=== PATIENT | male | born 1980 | race Hispanic/Latino ===

== ENCOUNTER 2017-02-17 23:54 | Observation (INO) | payer BC ==
[2017-02-17 23:59] VITALS: BP 139/90; PULSE 87; RESP 18; TEMP 98; O2SAT 98
--- NOTE | 2017-02-18 00:21 | ED PDOC ---
HPI: Psych/Substance Abuse Time Seen by Provider: 02/18/17 00:02 Chief Complaint (Nursing): Trauma Chief Complaint (Provider): etoh, fall History Per: Patient, EMS History/Exam Limitations: no limitations Additional History Per: Patient, EMS Additional Complaint(s): 36 y/o male brought in by EMS for eval of acute alcohol intoxication and fall. Patient found laying on sidewalk by bystanders. Patient with abrasions on head , left hand. Patient denies acute medical or psychiatric complaints. Past Medical History Reviewed: Historical Data, Nursing Documentation, Vital Signs Vital Signs: Last Vital Signs Temp 98 F 02/17/17 23:57 Pulse 87 02/17/17 23:57 Resp 18 02/17/17 23:57 BP 139/90 02/17/17 23:57 Pulse Ox 98 02/17/17 23:57 - Medical History PMH: No Chronic Diseases - Surgical History Surgical History: No Surg Hx - Family History Family History: States: Unknown Family Hx - Social History Current smoker - smoking cessation education provided: No Alcohol: None Drugs: Denies - Allergies Allergies/Adverse Reactions: Allergies Allergy/AdvReac Type Severity Reaction Status Date / Time No Known Allergies Allergy Verified 02/18/17 00:01 Review of Systems ROS Statement: Except As Marked, All Systems Reviewed And Found Negative Physical Exam - Reviewed Nursing Documentation Reviewed: Yes Vital Signs Reviewed: Yes - Physical Exam Appears: Positive for: Well, Non-toxic, No Acute Distress Head Exam: Negative for: ATRAUMATIC (skin avulsion right parietal scalp; no surrounding hematoma ) Skin: Positive for: Normal Color Eye Exam: Positive for: Normal appearance, EOMI, PERRL ENT: Positive for: Normal ENT Inspection Cardiovascular/Chest: Positive for: Regular Rate, Rhythm Respiratory: Positive for: Normal Breath Sounds Gastrointestinal/Abdominal: Positive for: Normal Exam Back: Positive for: Normal Inspection Extremity: Positive for: Normal ROM, Other (abrasions to dorsal right hand; no swelling, deformity. FROM) Neurologic/Psych: Positive for: Alert, Oriented (x2), Other (slurred speech, + AOB) - Laboratory Results Result Diagrams: 02/18/17 00:55 02/18/17 00:55 - ECG O2 Sat by Pulse Oximetry: 98 - Progress ED Course And Treament: labs, CT head, accucheck Scalp wound cleaned with NS, bacitracin and bandage applied Hand abrasions cleaned with NS. ED OBSERVATION Date of observation admission: 02/18/17 Time of observation admission: 01:27 - Observation admission statement Patient is being placed in observation because:: acute alcohol intoxication - Goals of Observation Goals of observation are:: observe for clinical sobriety - Progress Note Progress Note: 02/18/17 01:28 Patient sleeping; no distress EXAM: CT Head Without Intravenous Contrast CLINICAL HISTORY: Injury or trauma; Fall; Additional info: ETOH, fall TECHNIQUE: Axial computed tomography images of the head/brain without intravenous contrast. All CT scans at this facility use one or more dose reduction techniques, viz.: automated exposure control; ma/kV adjustment per patient size (including targeted exams where dose is matched to indication; i.e. head); or iterative reconstruction technique. Coronal and sagittal reformatted images were created and reviewed. EXAM DATE/TIME: 02/18/2017 COMPARISON: Per the online merchandising manager, the patient has no prior studies for comparison. FINDINGS: Brain: No acute intracranial hemorrhage. No abnormal extra-axial fluid collection. No herniation. Patent basal cisterns. Preserved zelaya-white matter differentiation. No evidence of acute ischemia. No evident intracranial mass. Ventricles: No hydrocephalus. Bones/joints: No evident acute fracture. Soft tissues: Small right parietal scalp contusion. Sinuses: Minimal mucosal thickening in the paranasal sinuses. Mastoid air cells: The mastoid air cells are clear. Orbits: No evident acute abnormality of the intraorbital contents. IMPRESSION: 1. No acute intracranial findings. 2. Small right parietal scalp contusion. EXAM: CT Cervical Spine Without Intravenous Contrast CLINICAL HISTORY: Injury or trauma; Fall; Initial encounter; Blunt trauma; Additional info: ETOH, fall TECHNIQUE: Axial computed tomography images of the cervical spine without intravenous contrast. All CT scans at this facility use one or more dose reduction techniques, viz.: automated exposure control; ma/kV adjustment per patient size (including targeted exams where dose is matched to indication; i.e. head); or iterative reconstruction technique. Coronal and sagittal reformatted images were created and reviewed. EXAM DATE/TIME: 02/18/2017 COMPARISON: Per the online merchandising manager, the patient has no prior studies for comparison. FINDINGS: Vertebrae: The spine is imaged from the skull base through the top of T3. No acute fracture. Anatomic alignment. Discs/spinal canal/neural foramina: Mild multilevel degenerative changes. Posterior discosteophyte complexes at C4-C5, C5-C6, and C6-C7 with associated mild central canal narrowing. No gross acute abnormality within the spinal canal. Soft tissues: No prevertebral soft tissue swelling or other evident acute abnormality. Lung apices: No pneumothorax, pleural fluid collection, or pulmonary airspace consolidation in the imaged portion of the thorax. IMPRESSION: 1. No acute findings. 2. Non-acute findings as described above. 3:00 Patient sleeping; no distress 4:30 Patient sleeping; no distress 6:00 Patient awake, alert, oriented x3. Ambulating steady gait. Stable for discharge. Advised neosporin for abrasions. Ice affected area. Follow up PMD 2-3 days. Return to ED for worsening/concerning symptoms. Disposition - Clinical Impression Clinical Impression: Alcohol intoxication, Skin avulsion, Head injury - Disposition
[2017-02-18 01:03] LABS: BASO % 0.4 % (0.0-2.0); EOS # 0.2 K/uL (0.0-0.7); HEMOGLOBIN 15.7 g/dL (12.0-18.0); LYMPH # 3.2 K/uL (1.0-4.3); LYMPH % 41.4 % (20.0-40.0); MEAN CELL VOLUME 87.5 fl (80.0-94.0); MEAN CORPUSCULAR HEMOGLOBIN 29.7 pg (27.0-31.0); MEAN PLATELET VOLUME 8.5 fl (7.2-11.7); MONO # 0.4 K/uL (0.0-0.8); MONO % 4.8 % (0.0-10.0); NEUT # 3.9 K/uL (1.8-7.0); NEUT % 50.4 % (50.0-75.0); NRBC % 0.1 % (0.0-0.0); RBC 5.29 Mil/uL (4.40-5.90); RED CELL DISTRIBUTION WIDTH 12.6 % (11.5-14.5); WHITE BLOOD COUNT 7.7 K/uL (4.8-10.8)
[2017-02-18 01:14] LABS: ALB/GLOB RATIO 1.6 (1.0-2.1); ALBUMIN 4.9 g/dL (3.5-5.0); ALT/SGPT 42 U/L (21-72); AST/SGOT 23 U/L (17-59); BLOOD UREA NITROGEN 15 mg/dl (9-20); CALCIUM 9.3 mg/dL (8.4-10.2); GFR AFRICAN-AMERICAN > 60; GFR NON-AFRICAN AMERICAN > 60
--- NOTE | 2017-02-18 09:26 | CT ---
PROCEDURE: CT HEAD WITHOUT CONTRAST. HISTORY: etoh, fall COMPARISON: None available. TECHNIQUE: Axial computed tomography images were obtained through the head/brain without intravenous contrast. Radiation dose: Total exam DLP = 837.91 mGy-cm. This CT exam was performed using one or more of the following dose reduction techniques: Automated exposure control, adjustment of the mA and/or kV according to patient size, and/or use of iterative reconstruction technique. FINDINGS: HEMORRHAGE: No intracranial hemorrhage. BRAIN: No mass effect or edema. No atrophy or chronic microvascular ischemic changes. VENTRICLES: Unremarkable. No hydrocephalus. CALVARIUM: No evidence of acute fracture. Soft tissue swelling seen at the right parietal scalp. PARANASAL SINUSES: Unremarkable as visualized. No significant inflammatory changes. MASTOID AIR CELLS: Unremarkable as visualized. No inflammatory changes. OTHER FINDINGS: None. IMPRESSION: No evidence of acute intracranial hemorrhage intracranial collection mass effect or midline shift. Small soft tissue swelling seen at the right parietal skull. Preliminary report was submitted by [facility].
--- NOTE | 2017-02-18 09:29 | CT ---
PROCEDURE: CT Cervical Spine without contrast HISTORY: <etoh, fall> COMPARISON: None available. TECHNIQUE: Axial computed tomography images were obtained of the cervical spine without the use of intravenous contrast. Coronal and sagittal reformatted images were created and reviewed. Radiation dose: Total exam DLP = 502.29 mGy-cm. This CT exam was performed using one or more of the following dose reduction techniques: Automated exposure control, adjustment of the mA and/or kV according to patient size, and/or use of iterative reconstruction technique. FINDINGS: VERTEBRAE: No fracture. Normal alignment. No destructive bony lesion. DISCS/SPINAL CANAL/NEURAL FORAMINA: Cenw-ot-unwsdigc spondylosis. Osteophyte disc bulging complex seen at C5-C6 associated with mild spinal stenosis. Discs heights are grossly preserved. PARASPINAL SOFT TISSUES: Unremarkable. OTHER FINDINGS: None. IMPRESSION: No CT evidence of acute fracture or subluxation. Lrxa-xm-hymtpkun spondylosis. Osteophyte disc bulging complex at C5-C6 associated with mild spinal stenosis. Preliminary report was submitted by [facility].
== END 2017-02-18 06:17 | disposition home or self-care (01) ==
LOC: H.ER 23:54 → H.EROBSV 02-18 01:27
PROVIDERS: ADMIT Emergency Medicine; ATTEND Emergency Medicine
DX: F10.129 Alcohol abuse with intoxication, unspecified (principal); S00.03XA Contusion of scalp, initial encounter; W19.XXXA Unspecified fall, initial encounter
CPT/HCPCS: 70450; 72125; 80053; 85025; G0378; G0480

== ENCOUNTER 2017-09-26 09:15 | Inpatient (IN) | payer BC ==
[2017-09-26] MEDS ORDERED: Sodium Chloride 0.9% 1,000 ML IV STA ×2 (10:23→14:40)
[2017-09-26] MEDS ORDERED: Morphine 4 MG/ML VIAL ONE ×3 (10:43→17:35)
[2017-09-26 10:50] LABS: VENOUS BLOOD GAS BASE EXCESS -12.2 mmol/L (0.0-2.0); VENOUS BLOOD GAS PCO2 64 mmHg (40-60); VENOUS BLOOD GAS PO2 63 mm/Hg (30-55); VENOUS BLOOD PH 7.08 (7.32-7.43)
[2017-09-26] MEDS: Morphine 4 MG/ML VIAL IVP ONE ×2 (10:51→14:44)
[2017-09-26 10:53] LABS: BASO % 0.1 % (0.0-2.0); EOS # 0.1 K/uL (0.0-0.7); EOS % 0.8 % (0.0-4.0); HEMOGLOBIN 16.1 g/dL (12.0-18.0); LYMPH # 1.1 K/uL (1.0-4.3); LYMPH % 10.9 % (20.0-40.0); MEAN CELL VOLUME 86.4 fl (80.0-94.0); MEAN CORPUSCULAR HEMOGLOBIN 30.3 pg (27.0-31.0); MONO # 0.8 K/uL (0.0-0.8); MONO % 7.8 % (0.0-10.0); NEUT # 7.8 K/uL (1.8-7.0); NEUT % 80.4 % (50.0-75.0); NRBC % 0.1 % (0.0-0.0); RBC 5.33 Mil/uL (4.40-5.90); RED CELL DISTRIBUTION WIDTH 12.7 % (11.5-14.5); WHITE BLOOD COUNT 9.7 K/uL (4.8-10.8)
[2017-09-26 10:58] LABS: INR 1.2 (0.9-1.2); PARTIAL THROMBOPLASTIN TIME 33.1 Seconds (25.6-37.1); PROTHROMBIN TIME 13.4 Seconds (9.8-13.1)
[2017-09-26 11:30] LABS: ALB/GLOB RATIO 1.2 (1.0-2.1); ALBUMIN 4.2 g/dL (3.5-5.0); ALT/SGPT 26 U/L (21-72); AST/SGOT 22 U/L (17-59); BLOOD UREA NITROGEN 17 mg/dl (9-20); CALCIUM 9.4 mg/dL (8.4-10.2); GFR AFRICAN-AMERICAN > 60; GFR NON-AFRICAN AMERICAN > 60
[2017-09-26 11:35] LABS: BLOOD UREA NITROGEN 17 mg/dl (9-20); CALCIUM 9.4 mg/dL (8.4-10.2); GFR AFRICAN-AMERICAN > 60; GFR NON-AFRICAN AMERICAN > 60
[2017-09-26 11:36] LABS: ALB/GLOB RATIO 1.3 (1.0-2.1); ALBUMIN 4.2 g/dL (3.5-5.0); ALT/SGPT 26 U/L (21-72); AST/SGOT 22 U/L (17-59)
[2017-09-26] MEDS ORDERED: Iohexol 300 100 ML IJ ONE (12:34)
[2017-09-26] MEDS ORDERED: Sodium Chloride 0.9% 100 ML ONE (12:34)
--- NOTE | 2017-09-26 13:53 | ED PDOC ---
HPI: Abdomen Time Seen by Provider: 09/26/17 09:45 Chief Complaint (Nursing): Abdominal Pain Chief Complaint (Provider): Right lower quadrant pain History Per: Patient History/Exam Limitations: no limitations Onset/Duration Of Symptoms: Days Location Of Pain/Discomfort: RLQ Quality Of Discomfort: "Pain" Exacerbating Factors: Movement, Cough, Walking Additional History Per: Patient Additional Complaint(s): 37yo male with no past medical history, presents to ED with complaints of right lower quadrant pain, present for the past 4 days. patient states the pain has been constant and is worsening; he states pain worsens with moving, coughing and touching the area. He denies any nausea, fever, vomiting or diarrhea. He has no other medical complaints. PCP: Dr. Mahoney Past Medical History Reviewed: Historical Data, Nursing Documentation, Vital Signs Vital Signs: Last Vital Signs Temp 100.9 F H 09/27/17 21:41 Pulse 95 H 09/27/17 21:00 Resp 20 09/27/17 21:00 BP 114/67 09/27/17 21:00 Pulse Ox 95 09/27/17 21:00 - Medical History PMH: No Chronic Diseases - Surgical History Surgical History: Tonsillectomy - Family History Family History: States: Unknown Family Hx - Home Medications Home Medications: Ambulatory Orders Medication Instructions Recorded No Known Home Med 09/26/17 - Allergies Allergies/Adverse Reactions: Allergies Allergy/AdvReac Type Severity Reaction Status Date / Time No Known Allergies Allergy Verified 02/18/17 00:01 Review of Systems ROS Statement: Except As Marked, All Systems Reviewed And Found Negative Constitutional: Negative for: Fever, Chills Gastrointestinal: Positive for: Abdominal Pain. Negative for: Nausea, Vomiting , Diarrhea Physical Exam - Reviewed Nursing Documentation Reviewed: Yes Vital Signs Reviewed: Yes - Physical Exam Appears: Positive for: Uncomfortable Head Exam: Positive for: ATRAUMATIC Skin: Positive for: Normal Color, Warm, Dry Eye Exam: Positive for: Normal appearance, EOMI, PERRL ENT: Positive for: Normal ENT Inspection Neck: Positive for: Painless ROM, Supple Cardiovascular/Chest: Positive for: Regular Rate, Rhythm. Negative for: Tachycardia Respiratory: Positive for: Normal Breath Sounds. Negative for: Respiratory Distress Gastrointestinal/Abdominal: Positive for: Soft, Tenderness (right lower quadrant ), Rebound. Negative for: Distended, Guarding, Other (peritoneal signs) Extremity: Positive for: Normal ROM Neurologic/Psych: Positive for: Alert, Oriented. Negative for: Motor/Sensory Deficits - Laboratory Results Result Diagrams: 09/27/17 05:50 09/27/17 05:50 - ECG O2 Sat by Pulse Oximetry: 99 (RA) Pulse Ox Interpretation: Normal Medical Decision Making Medical Decision Making: Impression: Right lower quadrant pain Differential: Most likely acute appendicitis, less likely kidney stones, UTI Plan: -- Labs -- IV Fluids -- Morphine 4mg IV -- Zofran 4mg IV -- CT Abdomen and Pelvis w/ IV Contrast Time: 1351 Radiologist informed provider that patient had acute appendicits. Case discussed with Dr. Mahoney, patient's PCP who is requesting Dr. Nelson for surgical consult. CT Abdomen and Pelvis FINDINGS: LOWER THORAX: A 7.7 mm nodular density seen abutting the right hemidiaphragm noncalcified and solid in consistency in image 12 series 3. Lung bases are otherwise clear. LIVER: Unremarkable. No gross lesion or ductal dilatation. GALLBLADDER AND BILE DUCTS: Unremarkable. PANCREAS: Unremarkable. No gross lesion or ductal dilatation. SPLEEN: Unremarkable. ADRENALS: Unremarkable. No mass. KIDNEYS AND URETERS: 1.4 cm simple cyst in the upper pole left kidney with a a 3.7 cm cyst identified at the mid to lower pole right kidney. No obstructive uropathy bilaterally. No radiodense urolithiasis associated with either kidney. VASCULATURE: Unremarkable. No aortic aneurysm. BOWEL: The lack of oral contrast limits evaluation of small large-bowel elements with the stomach collapsed. Moderate fecal loading seen throughout the large bowel with small bowel unremarkable grossly. No obstruction. No gross mural thickening. APPENDIX: Marked mural thickening seen within a distended, fluid-filled appendix measuring proxy 1.5 cm caliber with local jeanna appendiceal reaction. The pattern is most compatible with appendicitis without CT sign of rupture. PERITONEUM: Local periappendiceal reaction with remainder of the perineum unremarkable. No free air or fluid collection related. LYMPH NODES: Unremarkable. No enlarged lymph nodes. BLADDER: Unremarkable. REPRODUCTIVE: Unremarkable. BONES: No acute fracture. OTHER FINDINGS: None. IMPRESSION: 1. Findings positive for appendicitis without CT sign of rupture. 2. Bilateral renal cysts. 3. 7.7 mm noncalcified nodular density appears to abut the right hemidiaphragm likely reflecting a subpleural nodule. This may very difficult area to perform CT-guided biopsy due to the motion of the right hemidiaphragm. Options would be for tissue diagnosis which is the usual recommendation for the size of nodule. PET CT is a consideration though it may not visualize lesions smaller than 1 cm greatest dimension such as this nodule. There remains an option as well as short -term CT follow-up including six-month CT the chest if biopsy is not pursued. Time: 1353 Case discussed with surgical device sales representative dr. Owens, who will evaluated patient in ER. Time: 1355 Patient to be admitted under Dr. Mahoney with Dr. Nelson as consult. Case discussed with Dr. Nelson who agrees for surgical consult. Scribe Attestation: Documented by Angela Walters, acting as a scribe for Rena Wahl MD. Provider Scribe Attestation: All medical record entries made by the Scribe were at my direction and personally dictated by me. I have reviewed the chart and agree that the record accurately reflects my personal performance of the history, physical exam, medical decision making, and the department course for this patient. I have also personally directed, reviewed, and agree with the discharge instructions and disposition. Disposition - Clinical Impression Clinical Impression: Acute appendicitis - Patient ED Disposition Is Patient to be Admitted: Yes Discussed With : Rocael Goodwin Doctor Will See Patient In The: Hospital Counseled Patient/Family Regarding: Studies Performed, Diagnosis - Disposition Disposition Time: 13:55 Condition: FAIR - Pt Status Changed To: Hospital Disposition Of: Observation - POA Present On Arrival: None
--- NOTE | 2017-09-26 13:53 | CT ---
PROCEDURE: CT Abdomen and Pelvis with contrast HISTORY: RLQ pain COMPARISON: None. TECHNIQUE: Following the intravenous administration of iodinated contrast material, a CT examination of the abdomen and pelvis performed from the domes of the diaphragms to the symphysis pubis with reformatted datasets provided not only axial but also sagittal and coronal planes. Oral contrast was not administered as per referring physician request. Contrast dose: Omnipaque 300, 95 cc Radiation dose: Total exam DLP = 432.04 mGy-cm. This CT exam was performed using one or more of the following dose reduction techniques: Automated exposure control, adjustment of the mA and/or kV according to patient size, and/or use of iterative reconstruction technique. FINDINGS: LOWER THORAX: A 7.7 mm nodular density seen abutting the right hemidiaphragm noncalcified and solid in consistency in image 12 series 3. Lung bases are otherwise clear. LIVER: Unremarkable. No gross lesion or ductal dilatation. GALLBLADDER AND BILE DUCTS: Unremarkable. PANCREAS: Unremarkable. No gross lesion or ductal dilatation. SPLEEN: Unremarkable. ADRENALS: Unremarkable. No mass. KIDNEYS AND URETERS: 1.4 cm simple cyst in the upper pole left kidney with a a 3.7 cm cyst identified at the mid to lower pole right kidney. No obstructive uropathy bilaterally. No radiodense urolithiasis associated with either kidney. VASCULATURE: Unremarkable. No aortic aneurysm. BOWEL: The lack of oral contrast limits evaluation of small large-bowel elements with the stomach collapsed. Moderate fecal loading seen throughout the large bowel with small bowel unremarkable grossly. No obstruction. No gross mural thickening. APPENDIX: Marked mural thickening seen within a distended, fluid-filled appendix measuring proxy 1.5 cm caliber with local jeanna appendiceal reaction. The pattern is most compatible with appendicitis without CT sign of rupture. PERITONEUM: Local periappendiceal reaction with remainder of the perineum unremarkable. No free air or fluid collection related. LYMPH NODES: Unremarkable. No enlarged lymph nodes. BLADDER: Unremarkable. REPRODUCTIVE: Unremarkable. BONES: No acute fracture. OTHER FINDINGS: None. IMPRESSION: 1. Findings positive for appendicitis without CT sign of rupture. 2. Bilateral renal cysts. 3. 7.7 mm noncalcified nodular density appears to abut the right hemidiaphragm likely reflecting a subpleural nodule. This may very difficult area to perform CT-guided biopsy due to the motion of the right hemidiaphragm. Options would be for tissue diagnosis which is the usual recommendation for the size of nodule. PET CT is a consideration though it may not visualize lesions smaller than 1 cm greatest dimension such as this nodule. There remains an option as well as short-term CT follow-up including six-month CT the chest if biopsy is not pursued. Findings discussed with Dr. Wahl 09/26/2017 2:47 p.m. read back in written down verification.
--- NOTE | 2017-09-26 13:57 | CP.PCM.CON ---
History of Present Illness - History of Present Illness History of Present Illness: 37M with no significant past medical history presents to [facility] ED with complaints of abdominal pain. Patient reports abdominal pain began on Tuesday states location of pain was along lower abdominal region. As the days went by abdominal pain got worse and localized towards the right lower quadrant. Patient reports chills and nausea. Rates pain as 10/10. Denies headaches, cough , chest pain, shortness of breath. Reports increase in urinary frequency denies dysuria. PMH: as stated above Surgical history: tonsillectomy and adenoidectomy Soc Hx: Denies smoking. Denies illicit drug use. EtOH use socially. Fam Hx: non-contributory Review of Systems - Review of Systems Review of Systems: 12 pt ROS reviewed, unremarkable, except as stated in HPI Past Patient History - Past Social History Smoking Status: Unknown If Ever Smoked - PSYCHIATRIC Hx Substance Use: No - SURGICAL HISTORY Hx Tonsillectomy: Yes - ANESTHESIA Hx Anesthesia: Yes Meds Allergies/Adverse Reactions: Allergies Allergy/AdvReac Type Severity Reaction Status Date / Time No Known Allergies Allergy Verified 02/18/17 00:01 Physical Exam - Constitutional Appears: Non-toxic, No Acute Distress - Head Exam Head Exam: NORMOCEPHALIC - Eye Exam Eye Exam: EOMI, Normal appearance, PERRL - ENT Exam ENT Exam: Mucous Membranes Moist - Respiratory Exam Respiratory Exam: NORMAL BREATHING PATTERN - Cardiovascular Exam Cardiovascular Exam: +S1, +S2 - GI/Abdominal Exam GI & Abdominal Exam: Guarding, Rebound, Tenderness. absent: Distended, Firm, Rigid Additional comments: +rebound tenderness +Rovsing sign +McBurney's + psoas test +RLQ tenderness - Neurological Exam Neurological exam: Alert, Oriented x3 - Psychiatric Exam Psychiatric exam: Normal Mood - Skin Skin Exam: Dry, Intact, Warm Results - Vital Signs Recent Vital Signs: Last Vital Signs Temp 98 F 09/26/17 09:36 Pulse 88 09/26/17 09:36 Resp 18 09/26/17 09:36 BP 135/88 09/26/17 09:36 Pulse Ox 99 09/26/17 13:53 - Labs Result Diagrams: 09/26/17 10:42 09/26/17 11:07 Labs: Laboratory Results - last 24 hr 09/26/17 09/26/17 09/26/17 10:28 10:42 10:42 WBC 9.7 RBC 5.33 Hgb 16.1 Hct 46.1 MCV 86.4 MCH 30.3 MCHC 35.0 RDW 12.7 Plt Count 190 MPV 9.0 Neut % (Auto) 80.4 H Lymph % (Auto) 10.9 L [place] % (Auto) 7.8 Eos % (Auto) 0.8 Baso % (Auto) 0.1 Neut # (Auto) 7.8 H Lymph # (Auto) 1.1 [place] # (Auto) 0.8 Eos # (Auto) 0.1 Baso # (Auto) 0.0 PT INR APTT Sodium 143 Potassium 4.0 Chloride 101 Carbon Dioxide 24 Anion Gap 22 H BUN 17 Creatinine 0.9 Est GFR ( Amer) > 60 Est GFR (Non-Af Amer) > 60 POC Glucose (mg/dL) 94 Random Glucose 92 Calcium 9.4 Total Bilirubin 1.0 AST 22 ALT 26 Alkaline Phosphatase 57 Total Protein 7.5 Albumin 4.2 Globulin 3.3 Albumin/Globulin Ratio 1.3 Blood Type Antibody Screen BBK History Checked 09/26/17 09/26/17 09/26/17 10:42 10:42 11:07 WBC RBC Hgb Hct MCV MCH MCHC RDW Plt Count MPV Neut % (Auto) Lymph % (Auto) [place] % (Auto) Eos % (Auto) Baso % (Auto) Neut # (Auto) Lymph # (Auto) [place] # (Auto) Eos # (Auto) Baso # (Auto) PT 13.4 H INR 1.2 APTT 33.1 Sodium 143 Potassium 4.0 Chloride 101 Carbon Dioxide 24 Anion Gap 22 H BUN 17 Creatinine 0.9 Est GFR ( Amer) > 60 Est GFR (Non-Af Amer) > 60 POC Glucose (mg/dL) Random Glucose 92 Calcium 9.4 Total Bilirubin 1.0 AST 22 ALT 26 Alkaline Phosphatase 57 Total Protein 7.5 Albumin 4.2 Globulin 3.3 Albumin/Globulin Ratio 1.2 Blood Type Cancelled Antibody Screen Cancelled BBK History Checked Cancelled 09/26/17 11:07 WBC RBC Hgb Hct MCV MCH MCHC RDW Plt Count MPV Neut % (Auto) Lymph % (Auto) [place] % (Auto) Eos % (Auto) Baso % (Auto) Neut # (Auto) Lymph # (Auto) [place] # (Auto) Eos # (Auto) Baso # (Auto) PT INR APTT Sodium Potassium Chloride Carbon Dioxide Anion Gap BUN Creatinine Est GFR ( Amer) Est GFR (Non-Af Amer) POC Glucose (mg/dL) Random Glucose Calcium Total Bilirubin AST ALT Alkaline Phosphatase Total Protein Albumin Globulin Albumin/Globulin Ratio Blood Type O POSITIVE Antibody Screen Negative BBK History Checked No verified bt - Imaging and Cardiology CT scan - abdomen Status: Image reviewed by me, Report reviewed by me Assessment & Plan - Assessment and Plan (Free Text) Assessment: 37M with acute appendicitis Plan: Scheduled for OR for laparoscopic appendectomy, possible open Consent in chart NPO IVF Analgesic Anti-emetic DVT ppx Further recs per Dr. Omar Gifford PGY2
[2017-09-26] MEDS ORDERED: cefTRIAXone (Rocephin) 1 gm Inj ONE (14:36)
[2017-09-26] MEDS ORDERED: Morphine 4 MG/ML VIAL IVP ONE (14:39)
[2017-09-26] MEDS ORDERED: metroNIDAZOLE 500mg/100ml NS 100 ML IVPB SCH (17:00)
[2017-09-26] MEDS ORDERED: metroNIDAZOLE 500mg/100ml NS 100 ML IVPB ONE (17:36)
[2017-09-26] MEDS ORDERED: Lidocaine 4% (Laryng-O-Jet) Kit MM ONE (19:14)
[2017-09-26] MEDS ORDERED: Rocuronium 10 mg/ml (5 ml) ONE (19:14)
[2017-09-26] MEDS ORDERED: Midazolam 2 MG/2 ML VIAL ONE (19:14)
[2017-09-26] MEDS ORDERED: Neostigmine 1:1000 (1 mg/ml) Inj ONE ×2 (19:14→19:15)
[2017-09-26] MEDS ORDERED: Propofol 10 mg/ml Inj (20 ML) ONE (19:14)
[2017-09-26] MEDS ORDERED: Lactated Ringer's 1,000 ML IV ONE ×2 (19:40→20:35)
[2017-09-26] MEDS ORDERED: Succinylcholine 200 mg/10 ml Inj IV ONE (20:32)
--- NOTE | 2017-09-26 20:56 | CP.PCM.HP ---
History of Present Illness - History of Present Illness History of Present Illness: 37 yo admitted for RLQ pain CT scan positive for Acute Appendicitis Present on Admission - Present on Admission Any Indicators Present on Admission: No Past Patient History - Past Medical History & Family History Past Medical History?: No - Past Social History Smoking Status: Never Smoked - CARDIAC Hx Cardiac Disorders: No - PULMONARY Hx Respiratory Disorders: No - NEUROLOGICAL Hx Neurological Disorder: No - HEENT Hx HEENT Problems: No - RENAL Hx Chronic Kidney Disease: No - ENDOCRINE/METABOLIC Hx Endocrine Disorders: No - HEMATOLOGICAL/ONCOLOGICAL Hx Blood Disorders: No - INTEGUMENTARY Hx Dermatological Problems: No - MUSCULOSKELETAL/RHEUMATOLOGICAL Hx Musculoskeletal Disorders: No - GASTROINTESTINAL Hx Gastrointestinal Disorders: No - GENITOURINARY/GYNECOLOGICAL Hx Genitourinary Disorders: No - PSYCHIATRIC Hx Psychophysiologic Disorder: No - SURGICAL HISTORY Hx Tonsillectomy: Yes - ANESTHESIA Hx Anesthesia: Yes Meds Allergies/Adverse Reactions: Allergies Allergy/AdvReac Type Severity Reaction Status Date / Time No Known Allergies Allergy Verified 02/18/17 00:01 Results - Vital Signs Recent Vital Signs: Last Vital Signs Temp 97.9 F 09/26/17 20:44 Pulse 81 09/26/17 20:44 Resp 15 09/26/17 20:44 BP 124/71 09/26/17 20:44 Pulse Ox 100 09/26/17 19:32 - Labs Result Diagrams: 09/26/17 10:42 09/26/17 11:07 Labs: Laboratory Results - last 24 hr 09/26/17 09/26/17 09/26/17 10:28 10:42 10:42 WBC 9.7 RBC 5.33 Hgb 16.1 Hct 46.1 MCV 86.4 MCH 30.3 MCHC 35.0 RDW 12.7 Plt Count 190 MPV 9.0 Neut % (Auto) 80.4 H Lymph % (Auto) 10.9 L Davison % (Auto) 7.8 Eos % (Auto) 0.8 Baso % (Auto) 0.1 Neut # (Auto) 7.8 H Lymph # (Auto) 1.1 Davison # (Auto) 0.8 Eos # (Auto) 0.1 Baso # (Auto) 0.0 PT INR APTT Sodium 143 Potassium 4.0 Chloride 101 Carbon Dioxide 24 Anion Gap 22 H BUN 17 Creatinine 0.9 Est GFR ( Amer) > 60 Est GFR (Non-Af Amer) > 60 POC Glucose (mg/dL) 94 Random Glucose 92 Calcium 9.4 Total Bilirubin 1.0 AST 22 ALT 26 Alkaline Phosphatase 57 Total Protein 7.5 Albumin 4.2 Globulin 3.3 Albumin/Globulin Ratio 1.3 Blood Type Antibody Screen BBK History Checked 09/26/17 09/26/17 09/26/17 10:42 10:42 11:07 WBC RBC Hgb Hct MCV MCH MCHC RDW Plt Count MPV Neut % (Auto) Lymph % (Auto) Davison % (Auto) Eos % (Auto) Baso % (Auto) Neut # (Auto) Lymph # (Auto) Davison # (Auto) Eos # (Auto) Baso # (Auto) PT 13.4 H INR 1.2 APTT 33.1 Sodium 143 Potassium 4.0 Chloride 101 Carbon Dioxide 24 Anion Gap 22 H BUN 17 Creatinine 0.9 Est GFR ( Amer) > 60 Est GFR (Non-Af Amer) > 60 POC Glucose (mg/dL) Random Glucose 92 Calcium 9.4 Total Bilirubin 1.0 AST 22 ALT 26 Alkaline Phosphatase 57 Total Protein 7.5 Albumin 4.2 Globulin 3.3 Albumin/Globulin Ratio 1.2 Blood Type Cancelled Antibody Screen Cancelled BBK History Checked Cancelled 09/26/17 11:07 WBC RBC Hgb Hct MCV MCH MCHC RDW Plt Count MPV Neut % (Auto) Lymph % (Auto) Davison % (Auto) Eos % (Auto) Baso % (Auto) Neut # (Auto) Lymph # (Auto) Davison # (Auto) Eos # (Auto) Baso # (Auto) PT INR APTT Sodium Potassium Chloride Carbon Dioxide Anion Gap BUN Creatinine Est GFR ( Amer) Est GFR (Non-Af Amer) POC Glucose (mg/dL) Random Glucose Calcium Total Bilirubin AST ALT Alkaline Phosphatase Total Protein Albumin Globulin Albumin/Globulin Ratio Blood Type O POSITIVE Antibody Screen Negative BBK History Checked No verified bt Assessment & Plan - Assessment and Plan (Free Text) Assessment: Acute Appendicitis Surgery Subpleural nodule
[2017-09-26] MEDS: HYDROmorphone 0.5 mg/0.5 ml ISec IVP PRN ×3 (21:45→22:20)
--- NOTE | 2017-09-26 21:54 | PCM.SURG1 ---
Surgeon's Initial Post Op Note - Surgeon's Notes Surgeon: Dr. Nelson Leather Toggler: Dr. Owens PGY2 Type of Anesthesia: General Endo Pre-Operative Diagnosis: acute appendicitis Operative Findings: perforated appendicitis Post-Operative Diagnosis: same Operation Performed: laparoscopic appendectomy converted to open appendectomy Specimen/Specimens Removed: appendix Estimated Blood Loss: EBL {In ML}: 100 Blood Products Given: N/A Drains Used: No Drains Post-Op Condition: Good Date of Surgery/Procedure: 09/26/17 Time of Surgery/Procedure: 20:10
[2017-09-26] MEDS ORDERED: HYDROmorphone 0.5 mg/0.5 ml ISec IVP PRN (22:35)
[2017-09-27] MEDS: HYDROmorphone 0.5 mg/0.5 ml ISec IVP PRN ×4 (03:38→19:54)
[2017-09-27] MEDS: Piperacillin/Tazobact 3.375 GM in Sodium Chloride 0.9% 100 ML IVPB SCH ×4 (04:03→21:41)
[2017-09-27] MEDS: Lactated Ringer's 1,000 ML IV SCH ×3 (06:08→22:00)
[2017-09-27 06:39] LABS: BASO % 0.1 % (0.0-2.0); HEMOGLOBIN 13.2 g/dL (12.0-18.0); LYMPH # 0.8 K/uL (1.0-4.3); LYMPH % 7.5 % (20.0-40.0); MEAN CORPUSCULAR HEMOGLOBIN 30.1 pg (27.0-31.0); MEAN CORPUSCULAR HGB CONC 34.6 g/dL (33.0-37.0); MEAN PLATELET VOLUME 8.8 fl (7.2-11.7); MONO # 0.7 K/uL (0.0-0.8); MONO % 7.3 % (0.0-10.0); NEUT # 8.8 K/uL (1.8-7.0); NEUT % 85.1 % (50.0-75.0); PLATELET COUNT 168 K/uL (130-400); RED CELL DISTRIBUTION WIDTH 12.6 % (11.5-14.5); WHITE BLOOD COUNT 10.3 K/uL (4.8-10.8)
[2017-09-27 06:58] LABS: BLOOD UREA NITROGEN 11 mg/dl (9-20); CALCIUM 8.4 mg/dL (8.4-10.2); GFR AFRICAN-AMERICAN > 60; GFR NON-AFRICAN AMERICAN > 60
[2017-09-27 07:59] VITALS: RESP 20
[2017-09-27] MEDS: Enoxaparin 40 mg Syringe SC SCH (09:08)
[2017-09-27 10:37] LABS: BANDS 3 % (0-2); LYMPHOCYTE 6 % (20-50); MONOCYTE 5 % (0-10); NEUTROPHIL 86 % (42-75); PLATELET ESTIMATE NORMAL (NORMAL); TOTAL CELLS COUNTED 100
--- NOTE | 2017-09-27 13:47 | OP ---
PROCEDURE DATE: 09/26/2017 SURGEON: Ann Nelson MD CHEESE MAKER: Dr Owens ANESTHESIA: General. ANESTHESIA ADMINISTERED BY: Rosaline Salguero MD PREOPERATIVE DIAGNOSIS: Acute appendicitis POSTOPERATIVE DIAGNOSES: Acute appendicitis with abscess. PROCEDURE: Laparoscopic appendectomy converted to open appendectomy. DESCRIPTION OF OPERATION: With the patient in the supine position under adequate general anesthesia, the abdomen was prepped and draped in the usual sterile manner. Veress needle puncture was performed at the umbilicus with insufflation to 15 cm water pressure of CO2 and a 5 mm laparoscopic trocar was inserted via an infraumbilical incision. Under direct vision, 5 and 12 mm trocars were inserted in the left lower quadrant. The area of the cecum was identified and there was noted to be a large firm area of induration, medial to the cecum and below the ileocecal junction. The dissection in this area revealed what appeared to be the appendix and as this was gently teased away from the inflammatory mass at the base of the rectum. There was noted to be drainage of a small amount of thick white puss, this was suctioned and additional attempts were made to identify the appendix and because of the induration and thickness of the tissue at the site the appendix could not be grasped with the laparoscopic instruments and it was unable to determine the anatomy, a decision was made to switch to open appendectomy. The pneumoperitoneum was released and the trocars were removed. A transverse incision was made in the right lower quadrant, taken down through the subcutaneous tissues. The oblique musculature was split to expose the posterior fascia and the posterior fascia and peritoneum were elevated and incised to enter the peritoneal cavity. Once this has been completed. The cecum was delivered up into the wound and under direct vision, the thickened appendix could be gently dissected away from the wall of the cecum and the large inflammatory mass. The base of the appendix was better preserved and this was doubly clamped and ligated with a 0 Vicryl tie and the appendix was amputated. The mesoappendix was serially clamped, divided and ligated with 2-0 Vicryl ties. The operative site was examined for hemostasis and the cecum was returned to the peritoneal cavity. The pelvis and right gutter were irrigated and suctioned and closure was performed in two layers with running sutures of 0 Vicryl. Subcutaneous tissues were approximated with a few interrupted sutures of 3-0 Vicryl and subcuticular closure was performed with running subcuticular suture of 4-0 Monocryl and Steri-Strips. All the laparoscopic sites were closed with Monocryl with a fascial suture being also placed at the 12 mm port sites of 0 Vicryl. The patient tolerated the procedure well and transferred to recovery room in stable condition. Estimated blood loss for the procedure was 100 mL.. Ann Nelson MD MTDGabe
--- NOTE | 2017-09-27 21:13 | CP.PCM.PN ---
Subjective - Date & Time of Evaluation Date of Evaluation: 09/27/17 Time of Evaluation: 22:22 - Subjective Subjective: Doing well Still with pain Objective - Vital Signs/Intake and Output Vital Signs (last 24 hours): Temp Pulse Resp BP Pulse Ox 99 F 98 H 20 112/75 94 L 09/27/17 15:38 09/27/17 15:38 09/27/17 15:38 09/27/17 15:38 09/27/17 07:58 - Medications Medications: Current Medications Acetaminophen (Tylenol 325mg Tab) 650 mg PO Q6 PRN PRN Reason: Fever >100.4 F Last Admin: 09/27/17 05:18 Dose: 650 mg Enoxaparin Sodium (Lovenox) 40 mg SC DAILY VEDA PRN Reason: Protocol Last Admin: 09/27/17 09:08 Dose: 40 mg Hydromorphone HCl (Dilaudid) 1 mg IVP Q4 PRN PRN Reason: Pain, moderate (4-7) Last Admin: 09/27/17 19:54 Dose: 1 mg Hydromorphone HCl (Dilaudid) 0.5 mg IVP Q5MIN PRN PRN Reason: Pain, moderate (4-7) Last Admin: 09/26/17 22:35 Dose: 0.5 mg Lactated Ringer's (Lactated Ringer's) 1,000 mls @ 125 mls/hr IV .Q8H [facility] Last Admin: 09/27/17 07:13 Dose: Not Given Piperacillin Sod/Tazobactam (Sod 3.375 gm/ Sodium Chloride) 100 mls @ 100 mls/ hr IVPB Q6 VEDA PRN Reason: Protocol Last Admin: 09/27/17 15:45 Dose: 100 mls/hr Ondansetron HCl (Zofran Inj) 4 mg IVP Q4 PRN PRN Reason: Nausea/Vomiting Last Admin: 09/27/17 08:36 Dose: 4 mg - Labs Labs: 09/27/17 05:50 09/27/17 05:50 PT 13.4 Seconds (9.8-13.1) H 09/26/17 10:42 INR 1.2 (0.9-1.2) 09/26/17 10:42 APTT 33.1 Seconds (25.6-37.1) 09/26/17 10:42 - Respiratory Exam Respiratory Exam: NORMAL BREATHING PATTERN - Cardiovascular Exam Cardiovascular Exam: REGULAR RHYTHM - GI/Abdominal Exam GI & Abdominal Exam: Normal Bowel Sounds Assessment and Plan - Assessment and Plan (Free Text) Assessment: Acute Appendicitis- perforation POD #1 As per Surgery IVF ABX Subpleural nodule??
[2017-09-28] MEDS: HYDROmorphone 0.5 mg/0.5 ml ISec IVP PRN ×2 (03:44→09:15)
[2017-09-28] MEDS: Piperacillin/Tazobact 3.375 GM in Sodium Chloride 0.9% 100 ML IVPB SCH ×4 (03:44→21:24)
[2017-09-28 06:32] LABS: BASO # 0.1 K/uL (0.0-0.2); BASO % 0.7 % (0.0-2.0); EOS # 0.2 K/uL (0.0-0.7); HEMOGLOBIN 13.1 g/dL (12.0-18.0); LYMPH # 1.2 K/uL (1.0-4.3); LYMPH % 11.9 % (20.0-40.0); MEAN CELL VOLUME 87.6 fl (80.0-94.0); MEAN CORPUSCULAR HEMOGLOBIN 29.7 pg (27.0-31.0); MEAN PLATELET VOLUME 8.3 fl (7.2-11.7); MONO # 0.8 K/uL (0.0-0.8); MONO % 8.2 % (0.0-10.0); NEUT # 7.5 K/uL (1.8-7.0); NEUT % 77.2 % (50.0-75.0); NRBC % 0.2 % (0.0-0.0); RBC 4.4 Mil/uL (4.40-5.90); RED CELL DISTRIBUTION WIDTH 12.5 % (11.5-14.5); WHITE BLOOD COUNT 9.8 K/uL (4.8-10.8)
[2017-09-28] MEDS: Lactated Ringer's 1,000 ML IV SCH (06:57)
[2017-09-28 07:39] LABS: BLOOD UREA NITROGEN 10 mg/dl (9-20); GFR AFRICAN-AMERICAN > 60; GFR NON-AFRICAN AMERICAN > 60
--- NOTE | 2017-09-28 08:43 | CP.PCM.PN ---
Subjective - Date & Time of Evaluation Date of Evaluation: 09/28/17 Time of Evaluation: 08:41 - Subjective Subjective: Surgery Progress note: Dr. Nelson 37 year old male seen and evaluated at bedside this morning. Patient reports of mild tenderness but is tolerating it well. Denies of any acute overnight events. Denies of any F/N/V/C/SOB/CP. Reports he has been passing gas but denies of any bowel movements. Denies of any new complains at this time. Objective - Vital Signs/Intake and Output Vital Signs (last 24 hours): Temp Pulse Resp BP Pulse Ox 98.2 F 85 20 112/71 93 L 09/28/17 08:15 09/28/17 08:15 09/28/17 08:15 09/28/17 08:15 09/28/17 08:15 - Medications Medications: Current Medications Acetaminophen (Tylenol 325mg Tab) 650 mg PO Q6 PRN PRN Reason: Fever >100.4 F Last Admin: 09/27/17 21:41 Dose: 650 mg Enoxaparin Sodium (Lovenox) 40 mg SC DAILY VEDA PRN Reason: Protocol Last Admin: 09/27/17 09:08 Dose: 40 mg Hydromorphone HCl (Dilaudid) 1 mg IVP Q4 PRN PRN Reason: Pain, moderate (4-7) Last Admin: 09/28/17 03:44 Dose: 1 mg Hydromorphone HCl (Dilaudid) 0.5 mg IVP Q5MIN PRN PRN Reason: Pain, moderate (4-7) Last Admin: 09/26/17 22:35 Dose: 0.5 mg Lactated Ringer's (Lactated Ringer's) 1,000 mls @ 125 mls/hr IV .Q8H [facility] Last Admin: 09/28/17 06:57 Dose: Not Given Piperacillin Sod/Tazobactam (Sod 3.375 gm/ Sodium Chloride) 100 mls @ 100 mls/ hr IVPB Q6 VEDA PRN Reason: Protocol Last Admin: 09/28/17 03:44 Dose: 100 mls/hr Ondansetron HCl (Zofran Inj) 4 mg IVP Q4 PRN PRN Reason: Nausea/Vomiting Last Admin: 09/27/17 08:36 Dose: 4 mg - Labs Labs: 09/28/17 05:45 09/28/17 05:45 PT 13.4 Seconds (9.8-13.1) H 09/26/17 10:42 INR 1.2 (0.9-1.2) 09/26/17 10:42 APTT 33.1 Seconds (25.6-37.1) 09/26/17 10:42 - Constitutional Appears: Well, Non-toxic - Head Exam Head Exam: ATRAUMATIC - Eye Exam Eye Exam: Normal appearance - Neck Exam Neck Exam: Normal Inspection - Respiratory Exam Respiratory Exam: NORMAL BREATHING PATTERN - GI/Abdominal Exam GI & Abdominal Exam: Soft, Tenderness. absent: Rigid, Hernia, Mass Additional comments: Surgical site shows no signs of acute infections - Rectal Exam Rectal Exam: Deferred - Extremities Exam Extremities Exam: Normal Inspection. absent: Calf Tenderness - Back Exam Back Exam: NORMAL INSPECTION. absent: tenderness - Neurological Exam Neurological Exam: Alert, Awake, Oriented x3 - Psychiatric Exam Psychiatric exam: Normal Affect, Normal Mood - Skin Skin Exam: Intact, Normal Color, Warm Assessment and Plan - Assessment and Plan (Free Text) Assessment: 37 year old male 2 days s/p open appendectomy Plan: - Cont. Abx - Monitor diet - Pain management Further recs discuss with Dr. Nelson
[2017-09-28] MEDS: Enoxaparin 40 mg Syringe SC SCH (10:06)
[2017-09-28] MEDS ORDERED: Oxycodone/Acetaminophen 5/325 mg Tab PO PRN (11:21)
[2017-09-28] MEDS: Oxycodone/Acetaminophen 5/325 mg Tab PO PRN ×3 (11:37→20:13)
--- NOTE | 2017-09-28 18:55 | CP.PCM.PN ---
Subjective - Date & Time of Evaluation Date of Evaluation: 09/28/17 Time of Evaluation: 22:22 - Subjective Subjective: Still with pain Afebrile Objective - Vital Signs/Intake and Output Vital Signs (last 24 hours): Temp Pulse Resp BP Pulse Ox 98.8 F 72 20 109/70 96 09/28/17 16:04 09/28/17 16:04 09/28/17 16:04 09/28/17 16:04 09/28/17 16:04 - Medications Medications: Current Medications Acetaminophen (Tylenol 325mg Tab) 650 mg PO Q6 PRN PRN Reason: Fever >100.4 F Last Admin: 09/27/17 21:41 Dose: 650 mg Enoxaparin Sodium (Lovenox) 40 mg SC DAILY VEDA PRN Reason: Protocol Last Admin: 09/28/17 10:06 Dose: 40 mg Hydromorphone HCl (Dilaudid) 1 mg IVP Q4 PRN PRN Reason: Pain, moderate (4-7) Last Admin: 09/28/17 09:15 Dose: 1 mg Hydromorphone HCl (Dilaudid) 0.5 mg IVP Q5MIN PRN PRN Reason: Pain, moderate (4-7) Last Admin: 09/26/17 22:35 Dose: 0.5 mg Piperacillin Sod/Tazobactam (Sod 3.375 gm/ Sodium Chloride) 100 mls @ 100 mls/ hr IVPB Q6 VEDA PRN Reason: Protocol Last Admin: 09/28/17 16:18 Dose: 100 mls/hr Ondansetron HCl (Zofran Inj) 4 mg IVP Q4 PRN PRN Reason: Nausea/Vomiting Last Admin: 09/27/17 08:36 Dose: 4 mg Oxycodone/Acetaminophen (Percocet 5/325 Mg Tab) 1 tab PO Q4 PRN PRN Reason: Pain, moderate (4-7) Stop: 10/01/17 11:20 Last Admin: 09/28/17 16:18 Dose: 1 tab Oxycodone/Acetaminophen (Percocet 5/325 Mg Tab) 2 tab PO Q4 PRN PRN Reason: Pain, severe (8-10) Stop: 10/01/17 11:22 - Labs Labs: 09/28/17 05:45 09/28/17 05:45 PT 13.4 Seconds (9.8-13.1) H 09/26/17 10:42 INR 1.2 (0.9-1.2) 09/26/17 10:42 APTT 33.1 Seconds (25.6-37.1) 09/26/17 10:42 - Respiratory Exam Respiratory Exam: NORMAL BREATHING PATTERN - Cardiovascular Exam Cardiovascular Exam: REGULAR RHYTHM - GI/Abdominal Exam GI & Abdominal Exam: Normal Bowel Sounds Assessment and Plan - Assessment and Plan (Free Text) Assessment: Acute Appendicitis- perforation POD #2 As per Surgery IVF ABX OOB Incentive spirometry Subpleural nodule??
[2017-09-29] MEDS: Oxycodone/Acetaminophen 5/325 mg Tab PO PRN ×3 (00:41→12:48)
[2017-09-29] MEDS: Piperacillin/Tazobact 3.375 GM in Sodium Chloride 0.9% 100 ML IVPB SCH ×2 (04:44→09:34)
[2017-09-29 07:09] LABS: BASO % 0.1 % (0.0-2.0); EOS # 0.3 K/uL (0.0-0.7); EOS % 4.6 % (0.0-4.0); HEMOGLOBIN 11.4 g/dL (12.0-18.0); LYMPH # 1.3 K/uL (1.0-4.3); LYMPH % 18.5 % (20.0-40.0); MEAN CELL VOLUME 87.5 fl (80.0-94.0); MEAN CORPUSCULAR HEMOGLOBIN 30.1 pg (27.0-31.0); MEAN CORPUSCULAR HGB CONC 34.3 g/dL (33.0-37.0); MEAN PLATELET VOLUME 8.6 fl (7.2-11.7); MONO # 0.9 K/uL (0.0-0.8); MONO % 12.2 % (0.0-10.0); NEUT # 4.6 K/uL (1.8-7.0); NEUT % 64.6 % (50.0-75.0); NRBC % 0.2 % (0.0-0.0); RBC 3.78 Mil/uL (4.40-5.90); RED CELL DISTRIBUTION WIDTH 12.6 % (11.5-14.5); WHITE BLOOD COUNT 7.1 K/uL (4.8-10.8)
[2017-09-29 07:21] LABS: BLOOD UREA NITROGEN 9 mg/dl (9-20); CALCIUM 8.8 mg/dL (8.4-10.2); GFR AFRICAN-AMERICAN > 60; GFR NON-AFRICAN AMERICAN > 60
--- NOTE | 2017-09-29 09:21 | CP.PCM.PN ---
Subjective - Date & Time of Evaluation Date of Evaluation: 09/29/17 Time of Evaluation: 09:18 - Subjective Subjective: SURGERY NOTE FOR DR. MCCLENDON 37M seen and examined at bedside. Patient doing well, pain controlled, denies nausea/vomiting. He is tolerating diet. Admits to bowel function. Objective - Vital Signs/Intake and Output Vital Signs (last 24 hours): Temp Pulse Resp BP Pulse Ox 98.6 F 76 20 123/77 98 09/29/17 08:07 09/29/17 08:07 09/29/17 08:07 09/29/17 08:07 09/29/17 08:07 - Medications Medications: Current Medications Acetaminophen (Tylenol 325mg Tab) 650 mg PO Q6 PRN PRN Reason: Fever >100.4 F Last Admin: 09/27/17 21:41 Dose: 650 mg Enoxaparin Sodium (Lovenox) 40 mg SC DAILY VEDA PRN Reason: Protocol Last Admin: 09/28/17 10:06 Dose: 40 mg Hydromorphone HCl (Dilaudid) 1 mg IVP Q4 PRN PRN Reason: Pain, moderate (4-7) Last Admin: 09/28/17 09:15 Dose: 1 mg Hydromorphone HCl (Dilaudid) 0.5 mg IVP Q5MIN PRN PRN Reason: Pain, moderate (4-7) Last Admin: 09/26/17 22:35 Dose: 0.5 mg Piperacillin Sod/Tazobactam (Sod 3.375 gm/ Sodium Chloride) 100 mls @ 100 mls/ hr IVPB Q6 VEDA PRN Reason: Protocol Last Admin: 09/29/17 04:44 Dose: 100 mls/hr Ondansetron HCl (Zofran Inj) 4 mg IVP Q4 PRN PRN Reason: Nausea/Vomiting Last Admin: 09/27/17 08:36 Dose: 4 mg Oxycodone/Acetaminophen (Percocet 5/325 Mg Tab) 1 tab PO Q4 PRN PRN Reason: Pain, moderate (4-7) Stop: 10/01/17 11:20 Last Admin: 09/29/17 07:59 Dose: 1 tab Oxycodone/Acetaminophen (Percocet 5/325 Mg Tab) 2 tab PO Q4 PRN PRN Reason: Pain, severe (8-10) Stop: 10/01/17 11:22 - Labs Labs: 09/29/17 06:40 09/29/17 06:40 PT 13.4 Seconds (9.8-13.1) H 09/26/17 10:42 INR 1.2 (0.9-1.2) 09/26/17 10:42 APTT 33.1 Seconds (25.6-37.1) 09/26/17 10:42 - Constitutional Appears: Well, Non-toxic, No Acute Distress - Respiratory Exam Respiratory Exam: Clear to Ausculation Bilateral, NORMAL BREATHING PATTERN - Cardiovascular Exam Cardiovascular Exam: REGULAR RHYTHM, +S1, +S2 - GI/Abdominal Exam GI & Abdominal Exam: Soft. absent: Distended, Firm, Guarding, Rigid, Tenderness , Rebound Additional comments: incisions CDI - Neurological Exam Neurological Exam: Alert, Awake - Psychiatric Exam Psychiatric exam: Normal Affect, Normal Mood - Skin Skin Exam: Dry, Intact, Normal Color, Warm Assessment and Plan - Assessment and Plan (Free Text) Assessment: 37F s/p lap appendectomy POD2 Plan: Clear for DC with pain medication Antibiotics not necessary Further recs discuss with Dr. marcello Guerra, PGY2
[2017-09-29] MEDS: Enoxaparin 40 mg Syringe SC SCH (09:34)
[2017-09-29] MEDS ORDERED: Piperacillin/Tazobact 3.375 GM in Dextrose 5% In Water 100 ML IVPB SCH (16:00)
[2017-09-29 16:10] VITALS: BP 117/73; PULSE 75; TEMP 98.3; O2SAT 97
--- NOTE | 2017-09-29 21:07 | CP.PCM.PN ---
Subjective - Date & Time of Evaluation Date of Evaluation: 09/29/17 Time of Evaluation: 22:22 - Subjective Subjective: Above noteed Objective - Vital Signs/Intake and Output Vital Signs (last 24 hours): Temp Pulse Resp BP Pulse Ox 98.3 F 75 20 117/73 97 09/29/17 16:09 09/29/17 16:09 09/29/17 16:09 09/29/17 16:09 09/29/17 16:09 - Labs Labs: 09/29/17 06:40 09/29/17 06:40 PT 13.4 Seconds (9.8-13.1) H 09/26/17 10:42 INR 1.2 (0.9-1.2) 09/26/17 10:42 APTT 33.1 Seconds (25.6-37.1) 09/26/17 10:42 - Respiratory Exam Respiratory Exam: NORMAL BREATHING PATTERN - Cardiovascular Exam Cardiovascular Exam: REGULAR RHYTHM - GI/Abdominal Exam GI & Abdominal Exam: Normal Bowel Sounds Assessment and Plan - Assessment and Plan (Free Text) Assessment: S/P Acute Appendicitis- perforation POD #3 As per Surgery IVF ABX OOB Incentive spirometry Subpleural nodule?? outpt f/u
== END 2017-09-29 15:45 | disposition home or self-care (01) | DRG 340 ==
LOC: H.ER 09:15 → H.ERHOLD 13:55 → H.MEDSURG1 23:15
PROVIDERS: ADMIT Family Medicine Geriatric Medicine; ATTEND Family Medicine Geriatric Medicine
PROC: 0DJD4ZZ Inspection of Lower Intestinal Tract, Percutaneous Endoscopic Approach (ICD-10-PCS; 2017-09-26)
PROC: 0DTJ0ZZ Resection of Appendix, Open Approach (ICD-10-PCS; principal; 2017-09-26 20:00)
DX: K35.3 Acute appendicitis with localized peritonitis (principal); N28.1 Cyst of kidney, acquired; Z53.31 Laparoscopic surgical procedure converted to open procedure